=== PATIENT | female | born 2000 | race Caucasian/White ===

== ENCOUNTER 2022-02-23 13:54 | Emergency (ER) | payer MEDICAID, OTHER ==
[~2022-02-23] VITALS: Ht 167.6 cm; Wt 100.0 kg
[2022-02-23 13:56] VITALS: BP 140/69
[2022-02-23] MEDS ORDERED: NAPROXEN 250MG TABLET PO ONE (14:15)
[2022-02-23] MEDS ORDERED: IBUPROFEN 800MG TABLET PO ONE (15:00)
[2022-02-23 15:35] LABS: BASOPHILS % 0.2 % (0.0-2.0); EOSINOPHILS % 0.1 % (0.0-5.0); HEMATOCRIT. 41.2 % (36.0-48.0); LYMPHOCYTES % 15.3 % (20.0-50.0); MEAN CORPUSCULAR HEMOGLOBIN 29.5 pg (28.0-32.0); MEAN CORPUSCULAR VOLUME 86.7 fL (81.0-99.0); MEAN PLATELET VOLUME 9.4 fl (7.4-10.4); MONOCYTES % 4.2 % (2.0-8.0); NEUTROPHILS % 80.2 % (40.0-76.0); PLATELET 326 x1000/uL (130-400); RED BLOOD CELL COUNT 4.75 mill/uL (4.2-5.4)
[2022-02-23 15:42] LABS: CHLORIDE 108 mEq/L (98-107)
[2022-02-23] MEDS ORDERED: NAPR-1176 MT (15:55)
== END 2022-02-23 15:59 | disposition home or self-care (01) ==
LOC: ER 14:43
DX: D69.0 Allergic purpura (principal)
CPT/HCPCS: 36415; 80053; 85025; 99283